=== PATIENT | male | born 1945 | race Caucasian/White ===

== ENCOUNTER 2017-05-27 07:27 | Inpatient (IN) | payer MEDICARE ==
[~2017-05-27] VITALS: Ht 182.9 cm; Wt 94.4 kg
[~2017-05-27 07:27] MED LIST: ACET1TAB39; ALBU4TAB3 PO; ALBU8.5H8 INH; ALBUTEROL INH; ALPR-154; AMLO1CAP15 PO; BUDE180A; FLUT1DIS5 IH; GLIP10TA13; INSU100C5 SQ; INSU100I29 SQ; IPRA0.2S35 INH; LOSA1TAB19; NEBI5TAB2; PRED10TA14; RANI300T3; SIMV40TA3; THEO300C; TIOT18CA; VALA500T4
[2017-05-27] MEDS ORDERED: ALBUTEROL/IPRATROPIUM 2.5MG/0.5MG, 3 ML ONE (07:57)
[2017-05-27] MEDS ORDERED: LORazepam 1MG TABLET ONE (07:59)
[2017-05-27] MEDS ORDERED: ALBUTEROL/IPRATROPIUM 2.5MG/0.5MG, 3 ML NPPB ONE (08:00)
[2017-05-27] MEDS ORDERED: LORazepam 1MG TABLET PO ONE (08:00)
[2017-05-27 08:28] LABS: BASOPHILS # (AUTO) 0.02 x10^3/uL (0-0.1); BASOPHILS % (AUTO) 0 % (0-1); EOSINOPHILS % (AUTO) 0 % (1-7); LYMPHOCYTES # (AUTO) 0.45 x10^3/uL (1-3.4); LYMPHOCYTES % (AUTO) 6 % (22-44); MD NO; MEAN CORPUSCULAR HEMOGLOBIN 28.9 pg (27.5-34.5); MEAN CORPUSCULAR HGB CONC 33.3 g/dL (33.2-36.2); MEAN CORPUSCULAR VOLUME 86.7 fL (81-97); MEAN PLATELET VOLUME 8.8 fL (7.4-10.4); MONOCYTES # (AUTO) 0.13 x10^3/uL (0.2-0.8); MONOCYTES % (AUTO) 2 % (2-9); NEUTROPHILS # (AUTO) 6.75 x10^3/uL (1.8-6.8); NEUTROPHILS % (AUTO) 92 % (42-75); PLATELET COUNT 223 x10^3/uL (130-400); RED BLOOD COUNT 4.32 x10^6/uL (4.38-5.82); RED CELL DISTRIBUTION WIDTH 15.6 % (9.4-14.8)
[2017-05-27 08:38] LABS: ALBUMIN 3.4 g/dL (3.4-5.0); ANION GAP 14 mmol/L (5-15); CALCIUM 9.3 mg/dL (8.5-10.1); CHLORIDE 106 mmol/L (98-107); CREATININE 2.63 mg/dL (0.7-1.3)
[2017-05-27] MEDS ORDERED: ATOR-2 PO (08:39)
[2017-05-27] MEDS ORDERED: FENO145T32 PO (08:39)
[2017-05-27] MEDS ORDERED: EZET10TA18 PO (08:39)
[2017-05-27] MEDS ORDERED: LISI-170 PO (08:40)
[2017-05-27 08:41] LABS: TROPONIN I 0.046 ng/mL (0.000-0.045)
[2017-05-27] MEDS ORDERED: BISO1TAB51 PO (08:41)
[2017-05-27] MEDS ORDERED: HYDR12.58 PO (08:41)
[2017-05-27] MEDS ORDERED: FINA5TAB4 PO (08:42)
[2017-05-27] MEDS ORDERED: TAMS0.4C2 PO (08:42)
[2017-05-27] MEDS ORDERED: GABA300C10 PO (08:43)
[2017-05-27] MEDS ORDERED: THEO400T2 MM (08:44)
[2017-05-27] MEDS ORDERED: PRED10TA PO (08:45)
[2017-05-27] MEDS ORDERED: ALPR-475 PO (08:47)
[2017-05-27] MEDS ORDERED: ALBU18HF MM (08:47)
[2017-05-27] MEDS ORDERED: HYDR-3241 PO (08:49)
[2017-05-27] MEDS ORDERED: BICA50TA MM (08:49)
[2017-05-27] MEDS ORDERED: SODIUM CHLORIDE FLUSH 10ML SYR IVF PRN (11:30)
[2017-05-27] MEDS ORDERED: AZITHROMYCIN 500 MG TABLET PO ONE (12:30)
[2017-05-27] MEDS ORDERED: LABETALOL 5MG/ML, 20ML IVPush PRN (12:30)
[2017-05-27] MEDS: SODIUM CHLORIDE 0.9% 1,000 ML IV SCH (12:30)
[2017-05-27] MEDS ORDERED: ONDANSETRON 2MG/ML, 2ML IVPush PRN (12:30)
[2017-05-27] MEDS ORDERED: DOCUSATE 100 MG CAPSULE PO PRN (12:30)
[2017-05-27] MEDS ORDERED: ACETAMINOPHEN 325 MG TABLET PO PRN (12:30)
[2017-05-27] MEDS ORDERED: LORazepam 1MG TABLET PO PRN (12:30)
[2017-05-27] MEDS ORDERED: AMPICILLIN/SULBACTAM 1,500 MG in SODIUM CHLORIDE 0.9% 50 ML IV SCH (14:00)
[2017-05-27 14:20] VITALS: BP 145/68
[2017-05-27] MEDS ORDERED: ALBUTEROL/IPRATROPIUM 2.5MG/0.5MG, 3 ML NPPB SCH ×2 (15:00)
[2017-05-27] MEDS: ALBUTEROL/IPRATROPIUM 2.5MG/0.5MG, 3 ML NPPB SCH ×3 (15:15→23:51)
[2017-05-27 15:58] LABS: TROPONIN I 0.075 ng/mL (0.000-0.045)
[2017-05-27 16:00] LABS: THEOPHYLLINE 25.5 mcg/mL (10.0-20.0)
[2017-05-27] MEDS: HYDROCHLOROTHIAZIDE 12.5 MG CAPSULE PO SCH (16:01)
[2017-05-27] MEDS: AMLODIPINE 5 MG TABLET PO SCH (16:01)
[2017-05-27] MEDS: FINASTERIDE 5 MG TABLET PO SCH (16:01)
[2017-05-27] MEDS: methylPREDNISolone SOD SUCC 125 MG/2 ML IVPush SCH ×2 (16:02→21:40)
[2017-05-27] MEDS: HEPARIN 5,000 UNITS/ML, 1ML SQ SCH ×2 (16:02→21:40)
[2017-05-27] MEDS ORDERED: INSULIN DETEMIR 100 UNITS/ML, PEN SQ-INSULIN SCH (17:00)
[2017-05-27] MEDS: TAMSULOSIN 0.4 MG CAP.ER.24H PO SCH (17:51)
[2017-05-27] MEDS: INSULIN ASPART 100 UNITS/ML, PEN SQ-INSULIN SCH ×2 (17:51→21:42)
[2017-05-27] MEDS: CARVEDILOL 6.25 MG TABLET PO SCH (17:51)
[2017-05-27 19:01] VITALS: BP 145/65
[2017-05-27] MEDS ORDERED: GABAPENTIN 300 MG CAPSULE PO SCH (21:00)
[2017-05-27] MEDS: FLUTICASONE/VILANTEROL 200-25MCG/INH INH SCH (21:40)
[2017-05-27] MEDS: FAMOTIDINE 20 MG TABLET PO SCH (21:41)
[2017-05-27] MEDS: ATORVASTATIN 80 MG TABLET PO SCH (21:41)
[2017-05-27 22:23] LABS: TROPONIN I 0.095 ng/mL (0.000-0.045)
[2017-05-28 01:12] VITALS: BP 148/70
[2017-05-28] MEDS: HEPARIN 5,000 UNITS/ML, 1ML SQ SCH ×3 (04:59→21:39)
[2017-05-28] MEDS: CARVEDILOL 6.25 MG TABLET PO SCH ×2 (05:00→17:18)
[2017-05-28] MEDS: methylPREDNISolone SOD SUCC 125 MG/2 ML IVPush SCH ×3 (05:00→21:39)
[2017-05-28 05:28] LABS: ANION GAP 8 mmol/L (5-15); CALCIUM 8.7 mg/dL (8.5-10.1); CHLORIDE 105 mmol/L (98-107); CREATININE 2.14 mg/dL (0.7-1.3)
[2017-05-28] MEDS: ALBUTEROL/IPRATROPIUM 2.5MG/0.5MG, 3 ML NPPB SCH ×6 (05:37→21:59)
[2017-05-28 08:06] VITALS: BP 161/71
[2017-05-28] MEDS: AZITHROMYCIN 250 MG TABLET PO SCH (09:00)
[2017-05-28] MEDS: SENNA/DOCUSATE TABLET PO SCH (09:00)
[2017-05-28] MEDS ORDERED: LISINOPRIL 20 MG TABLET PO SCH (09:00)
[2017-05-28 09:38] LABS: TROPONIN I 0.069 ng/mL (0.000-0.045)
[2017-05-28] MEDS: SODIUM CHLORIDE 0.9% 1,000 ML IV SCH (09:38)
[2017-05-28] MEDS: INSULIN DETEMIR 100 UNITS/ML, PEN SQ-INSULIN SCH ×2 (09:38→17:17)
[2017-05-28] MEDS: INSULIN ASPART 100 UNITS/ML, PEN SQ-INSULIN SCH ×4 (09:38→21:40)
[2017-05-28] MEDS: FLUTICASONE/VILANTEROL 200-25MCG/INH INH SCH ×2 (09:38→21:39)
[2017-05-28] MEDS: FINASTERIDE 5 MG TABLET PO SCH (09:39)
[2017-05-28] MEDS: ASPIRIN 325 MG TABLET PO SCH (09:39)
[2017-05-28] MEDS: HYDROCHLOROTHIAZIDE 12.5 MG CAPSULE PO SCH (09:40)
[2017-05-28] MEDS: AMLODIPINE 5 MG TABLET PO SCH (09:40)
[2017-05-28] MEDS: TAMSULOSIN 0.4 MG CAP.ER.24H PO SCH (09:40)
[2017-05-28] MEDS ORDERED: ALBUTEROL/IPRATROPIUM 2.5MG/0.5MG, 3 ML NPPB PRN (11:00)
[2017-05-28] MEDS ORDERED: ALBUTEROL/IPRATROPIUM 2.5MG/0.5MG, 3 ML NPPB SCH (11:00)
[2017-05-28 12:32] VITALS: BP 145/65
[2017-05-28 18:50] VITALS: BP 144/77
[2017-05-28] MEDS: ATORVASTATIN 80 MG TABLET PO SCH (21:39)
[2017-05-28] MEDS: GABAPENTIN 300 MG CAPSULE PO SCH (21:39)
[2017-05-28] MEDS: FAMOTIDINE 20 MG TABLET PO SCH (21:39)
[2017-05-29 01:31] VITALS: BP 138/63
[2017-05-29] MEDS: ALBUTEROL/IPRATROPIUM 2.5MG/0.5MG, 3 ML NPPB SCH ×6 (02:04→22:28)
[2017-05-29] MEDS: SODIUM CHLORIDE 0.9% 1,000 ML IV SCH (05:00)
[2017-05-29 05:27] LABS: CHLORIDE 108 mmol/L (98-107)
[2017-05-29 05:31] LABS: ANION GAP 9 mmol/L (5-15); CALCIUM 8.7 mg/dL (8.5-10.1); CREATININE 1.92 mg/dL (0.7-1.3)
[2017-05-29] MEDS: HEPARIN 5,000 UNITS/ML, 1ML SQ SCH ×3 (05:38→20:58)
[2017-05-29] MEDS: methylPREDNISolone SOD SUCC 125 MG/2 ML IVPush SCH ×3 (05:39→20:58)
[2017-05-29] MEDS: CARVEDILOL 6.25 MG TABLET PO SCH ×2 (05:39→17:10)
[2017-05-29 06:55] VITALS: BP 154/73
[2017-05-29] MEDS ORDERED: INSULIN ASPART 100 UNITS/ML, PEN SQ-INSULIN ONE (09:30)
[2017-05-29] MEDS: FLUTICASONE/VILANTEROL 200-25MCG/INH INH SCH ×2 (09:38→20:58)
[2017-05-29] MEDS: AMLODIPINE 5 MG TABLET PO SCH (09:39)
[2017-05-29] MEDS: TAMSULOSIN 0.4 MG CAP.ER.24H PO SCH (09:39)
[2017-05-29] MEDS: FINASTERIDE 5 MG TABLET PO SCH (09:39)
[2017-05-29] MEDS: HYDROCHLOROTHIAZIDE 12.5 MG CAPSULE PO SCH (09:39)
[2017-05-29] MEDS: ASPIRIN 325 MG TABLET PO SCH (09:40)
[2017-05-29] MEDS: AZITHROMYCIN 250 MG TABLET PO SCH (09:40)
[2017-05-29] MEDS: INSULIN ASPART 100 UNITS/ML, PEN SQ-INSULIN SCH ×4 (09:41→20:59)
[2017-05-29] MEDS: INSULIN DETEMIR 100 UNITS/ML, PEN SQ-INSULIN SCH ×2 (09:41→17:16)
[2017-05-29] MEDS: SENNA/DOCUSATE TABLET PO SCH (09:41)
[2017-05-29 10:21] LABS: MEAN CORPUSCULAR HEMOGLOBIN 28.4 pg (27.5-34.5); MEAN CORPUSCULAR HGB CONC 32.6 g/dL (33.2-36.2); MEAN CORPUSCULAR VOLUME 87.3 fL (81-97); RED CELL DISTRIBUTION WIDTH 14.9 % (9.4-14.8)
[2017-05-29 10:22] LABS: MEAN PLATELET VOLUME 9.5 fL (7.4-10.4); PLATELET COUNT 155 x10^3/uL (130-400)
[2017-05-29 10:23] LABS: MD YES
[2017-05-29 10:26] LABS: BAND#(MANUAL) 0.22 x10^3/uL; BANDS%(MANUAL) 3 % (0-7); LYMPH#(MANUAL) 0.58 x10^3/uL (1-3.4); LYMPHS% (MANUAL) 8 % (22-44); MONOS#(MANUAL) 0.58 x10^3/uL (0.3-2.7); MONOS% (MANUAL) 8 % (2-9); MYELOCYTES# (MANUAL) 0.14 x10^3/uL (0-0); MYELOCYTES% (MANUAL) 2 % (0-0); SEG#(MANUAL) 5.69 x10^3/uL (1.8-6.8); SEGS% (MANUAL) 79 % (42-75)
[2017-05-29 10:27] LABS: <PLATELET ESTIMATE> ADEQUATE; <RBC MORPHOLOGY> NORMAL; LARGE PLATELETS 1+
[2017-05-29 13:50] VITALS: BP 178/76
[2017-05-29] MEDS ORDERED: FLU VACC QS2017-18 (36MOS+) UP/PF 0.5 ML IM-VACC ONE (14:30)
[2017-05-29] MEDS: FAMOTIDINE 20 MG TABLET PO SCH (20:58)
[2017-05-29] MEDS: ATORVASTATIN 80 MG TABLET PO SCH (20:58)
[2017-05-29] MEDS: GABAPENTIN 300 MG CAPSULE PO SCH (20:58)
[2017-05-29 21:56] VITALS: BP 167/80
[2017-05-30] VITALS (7 sets, daily range): BP systolic 143–190; BP diastolic 66–93
[2017-05-30] MEDS: SODIUM CHLORIDE 0.9% 1,000 ML IV SCH ×2 (01:10→17:57)
[2017-05-30] MEDS: ALBUTEROL/IPRATROPIUM 2.5MG/0.5MG, 3 ML NPPB SCH ×6 (02:16→22:45)
[2017-05-30 05:24] LABS: ANION GAP 7 mmol/L (5-15); CALCIUM 8.5 mg/dL (8.5-10.1); CHLORIDE 112 mmol/L (98-107); CREATININE 1.64 mg/dL (0.7-1.3)
[2017-05-30] MEDS: methylPREDNISolone SOD SUCC 125 MG/2 ML IVPush SCH (06:32)
[2017-05-30] MEDS: HEPARIN 5,000 UNITS/ML, 1ML SQ SCH ×3 (06:32→21:47)
[2017-05-30] MEDS: CARVEDILOL 6.25 MG TABLET PO SCH ×2 (06:32→17:38)
[2017-05-30] MEDS: INSULIN ASPART 100 UNITS/ML, PEN SQ-INSULIN SCH ×4 (08:15→21:48)
[2017-05-30] MEDS: FINASTERIDE 5 MG TABLET PO SCH (08:16)
[2017-05-30] MEDS: INSULIN DETEMIR 100 UNITS/ML, PEN SQ-INSULIN SCH ×2 (08:16→17:39)
[2017-05-30] MEDS: FLUTICASONE/VILANTEROL 200-25MCG/INH INH SCH ×2 (08:16→21:48)
[2017-05-30] MEDS: AMLODIPINE 5 MG TABLET PO SCH (08:17)
[2017-05-30] MEDS: ASPIRIN 325 MG TABLET PO SCH (08:17)
[2017-05-30] MEDS: TAMSULOSIN 0.4 MG CAP.ER.24H PO SCH (08:17)
[2017-05-30] MEDS: AZITHROMYCIN 250 MG TABLET PO SCH (08:18)
[2017-05-30] MEDS: HYDROCHLOROTHIAZIDE 12.5 MG CAPSULE PO SCH (08:18)
[2017-05-30] MEDS: SENNA/DOCUSATE TABLET PO SCH (08:18)
[2017-05-30] MEDS: GABAPENTIN 300 MG CAPSULE PO SCH (21:48)
[2017-05-30] MEDS: ATORVASTATIN 80 MG TABLET PO SCH (21:48)
[2017-05-30] MEDS: FAMOTIDINE 20 MG TABLET PO SCH (21:48)
[2017-05-31] MEDS: ALBUTEROL/IPRATROPIUM 2.5MG/0.5MG, 3 ML NPPB SCH ×6 (03:10→23:00)
[2017-05-31 06:12] VITALS: BP 184/85
[2017-05-31] MEDS: HEPARIN 5,000 UNITS/ML, 1ML SQ SCH ×2 (06:14→22:27)
[2017-05-31] MEDS: CARVEDILOL 6.25 MG TABLET PO SCH ×2 (06:15→17:15)
[2017-05-31 07:34] LABS: ANION GAP 7 mmol/L (5-15); CALCIUM 8.3 mg/dL (8.5-10.1); CHLORIDE 111 mmol/L (98-107); CREATININE 1.42 mg/dL (0.7-1.3)
[2017-05-31 08:16] VITALS: BP 180/94
[2017-05-31] MEDS: INSULIN ASPART 100 UNITS/ML, PEN SQ-INSULIN SCH ×4 (08:19→22:17)
[2017-05-31] MEDS: FLUTICASONE/VILANTEROL 200-25MCG/INH INH SCH ×2 (08:20→22:27)
[2017-05-31] MEDS: ASPIRIN 325 MG TABLET PO SCH (08:20)
[2017-05-31] MEDS: TAMSULOSIN 0.4 MG CAP.ER.24H PO SCH (08:20)
[2017-05-31] MEDS: INSULIN DETEMIR 100 UNITS/ML, PEN SQ-INSULIN SCH ×2 (08:20→17:15)
[2017-05-31] MEDS: FINASTERIDE 5 MG TABLET PO SCH (08:21)
[2017-05-31] MEDS: LISINOPRIL 20 MG TABLET PO SCH (08:21)
[2017-05-31] MEDS: AMLODIPINE 5 MG TABLET PO SCH (08:21)
[2017-05-31] MEDS: HYDROCHLOROTHIAZIDE 12.5 MG CAPSULE PO SCH (08:21)
[2017-05-31] MEDS: SENNA/DOCUSATE TABLET PO SCH (08:21)
[2017-05-31] MEDS ORDERED: POTASSIUM CHLORIDE 40 MEQ in SODIUM CHLORIDE 0.9% 500 ML IV ONE (09:00)
[2017-05-31] MEDS: AZITHROMYCIN 250 MG TABLET PO SCH (09:30)
[2017-05-31 13:36] VITALS: BP 137/64
[2017-05-31] MEDS ORDERED: FUROSEMIDE 40 MG/4 ML IV ONE (15:00)
[2017-05-31 16:06] LABS: ANION GAP 7 mmol/L (5-15); CHLORIDE 111 mmol/L (98-107); CREATININE 1.45 mg/dL (0.7-1.3)
[2017-05-31 22:10] VITALS: BP 178/75
[2017-05-31] MEDS: FAMOTIDINE 20 MG TABLET PO SCH (22:17)
[2017-05-31] MEDS: GABAPENTIN 300 MG CAPSULE PO SCH (22:17)
[2017-05-31] MEDS: ATORVASTATIN 80 MG TABLET PO SCH (22:17)
[2017-06-01] MEDS: ALBUTEROL/IPRATROPIUM 2.5MG/0.5MG, 3 ML NPPB SCH ×6 (03:00→22:43)
[2017-06-01 04:45] VITALS: BP 189/79
[2017-06-01 06:25] VITALS: BP 174/69
[2017-06-01] MEDS: CARVEDILOL 6.25 MG TABLET PO SCH ×2 (06:32→17:58)
[2017-06-01] MEDS: HEPARIN 5,000 UNITS/ML, 1ML SQ SCH ×3 (06:32→21:46)
[2017-06-01 07:33] LABS: ANION GAP 5 mmol/L (5-15); CHLORIDE 109 mmol/L (98-107); CREATININE 1.13 mg/dL (0.7-1.3)
[2017-06-01] MEDS: LISINOPRIL 20 MG TABLET PO SCH (08:37)
[2017-06-01] MEDS: FINASTERIDE 5 MG TABLET PO SCH (08:38)
[2017-06-01] MEDS: AMLODIPINE 5 MG TABLET PO SCH (08:38)
[2017-06-01] MEDS: TAMSULOSIN 0.4 MG CAP.ER.24H PO SCH (08:38)
[2017-06-01] MEDS: ASPIRIN 325 MG TABLET PO SCH (08:38)
[2017-06-01] MEDS: FLUTICASONE/VILANTEROL 200-25MCG/INH INH SCH ×2 (08:39→21:45)
[2017-06-01] MEDS: INSULIN DETEMIR 100 UNITS/ML, PEN SQ-INSULIN SCH ×2 (08:43→17:57)
[2017-06-01] MEDS: INSULIN ASPART 100 UNITS/ML, PEN SQ-INSULIN SCH ×4 (08:44→21:45)
[2017-06-01] MEDS: SENNA/DOCUSATE TABLET PO SCH (09:00)
[2017-06-01] MEDS: AZITHROMYCIN 250 MG TABLET PO SCH (09:00)
[2017-06-01] MEDS: HYDROCHLOROTHIAZIDE 25 MG TABLET PO SCH (09:03)
[2017-06-01 14:27] VITALS: BP 164/63
[2017-06-01 19:23] VITALS: BP 160/66
[2017-06-01] MEDS: FAMOTIDINE 20 MG TABLET PO SCH (21:46)
[2017-06-01] MEDS: ATORVASTATIN 80 MG TABLET PO SCH (21:46)
[2017-06-01] MEDS: GABAPENTIN 300 MG CAPSULE PO SCH (21:46)
[2017-06-02 01:46] VITALS: BP 171/69
[2017-06-02] MEDS: ALBUTEROL/IPRATROPIUM 2.5MG/0.5MG, 3 ML NPPB SCH ×5 (03:20→17:18)
[2017-06-02] MEDS: HEPARIN 5,000 UNITS/ML, 1ML SQ SCH ×2 (05:06→14:54)
[2017-06-02] MEDS: CARVEDILOL 6.25 MG TABLET PO SCH ×2 (05:06→16:57)
[2017-06-02 06:45] VITALS: BP 170/75
[2017-06-02] MEDS: INSULIN ASPART 100 UNITS/ML, PEN SQ-INSULIN SCH ×3 (07:00→16:00)
[2017-06-02] MEDS ORDERED: INSULIN DETEMIR 100 UNITS/ML, PEN SQ-INSULIN SCH (08:00)
[2017-06-02] MEDS: AMLODIPINE 5 MG TABLET PO SCH (08:17)
[2017-06-02] MEDS: AZITHROMYCIN 250 MG TABLET PO SCH (08:17)
[2017-06-02] MEDS: LISINOPRIL 20 MG TABLET PO SCH (08:17)
[2017-06-02] MEDS: FINASTERIDE 5 MG TABLET PO SCH (08:17)
[2017-06-02] MEDS: TAMSULOSIN 0.4 MG CAP.ER.24H PO SCH (08:18)
[2017-06-02] MEDS: HYDROCHLOROTHIAZIDE 25 MG TABLET PO SCH (08:18)
[2017-06-02] MEDS: ASPIRIN 325 MG TABLET PO SCH (08:18)
[2017-06-02] MEDS: FLUTICASONE/VILANTEROL 200-25MCG/INH INH SCH (08:22)
[2017-06-02] MEDS: SENNA/DOCUSATE TABLET PO SCH (09:00)
[2017-06-02] MEDS ORDERED: PRED20TA PO (11:22)
[2017-06-02 12:30] VITALS: BP 132/63
[2017-06-02] MEDS: INSULIN DETEMIR 100 UNITS/ML, PEN SQ-INSULIN SCH (17:00)
[2017-06-03] MEDS ORDERED: INSULIN DETEMIR 100 UNITS/ML, PEN SQ-INSULIN SCH (08:00)
== END 2017-06-02 18:02 | disposition home or self-care (01) | DRG 683 ==
LOC: ED 10:54 → EDIP 11:21 → 4EST 13:43
PROVIDERS: ADMIT Family Medicine; ATTEND Family Medicine
PROC: 3E0234Z Introduction of Serum, Toxoid and Vaccine into Muscle, Percutaneous Approach (ICD-10-PCS; principal; 2017-05-29)
DX: I12.9 Hypertensive chronic kidney disease with stage 1 through stage 4 chronic kidney disease, or unspecified chronic kidney disease (principal); J44.1 Chronic obstructive pulmonary disease with (acute) exacerbation; N17.9 Acute kidney failure, unspecified; E11.22 Type 2 diabetes mellitus with diabetic chronic kidney disease; I24.8 Other forms of acute ischemic heart disease; I47.1 Supraventricular tachycardia; Z99.81 Dependence on supplemental oxygen; E86.9 Volume depletion, unspecified; R09.02 Hypoxemia; N18.3 Chronic kidney disease, stage 3 (moderate); G89.29 Other chronic pain; I25.10 Atherosclerotic heart disease of native coronary artery without angina pectoris; Z23 Encounter for immunization; E78.5 Hyperlipidemia, unspecified; E87.6 Hypokalemia; F41.1 Generalized anxiety disorder; T38.0X5A Adverse effect of glucocorticoids and synthetic analogues, initial encounter; Z66 Do not resuscitate; Z87.891 Personal history of nicotine dependence; Z90.79 Acquired absence of other genital organ(s); Z95.1 Presence of aortocoronary bypass graft; Z96.649 Presence of unspecified artificial hip joint; T48.6X5A Adverse effect of antiasthmatics, initial encounter; Y92.89 Other specified places as the place of occurrence of the external cause; Z85.46 Personal history of malignant neoplasm of prostate
CPT/HCPCS: 36415; 71010; 71045; 80048; 80198; 82040; 82962; 83735; 83880; 84484; 85025; 90686; 93005; 93306; 94640; 99291; J1644; J1815; J1940; J3480; J7620; J2930; J7030; J7040; J7512